=== PATIENT | male | born 1985 | race Caucasian/White ===

== ENCOUNTER 2017-06-08 19:25 | Emergency (ER) | payer SELFPAY | END 2017-06-08 20:20 | disposition home or self-care (01) | LOC: ERS 19:25 | DX: J34.0 Abscess, furuncle and carbuncle of nose (principal); Z87.891 Personal history of nicotine dependence | CPT/HCPCS: 99283 ==

== ENCOUNTER 2017-06-13 19:20 | Emergency (ER) | payer SELFPAY ==
--- NOTE | 2017-06-13 22:40 | RAD ---
TWO VIEW CHEST 06/13/17 INDICATION: Cough. Staph infection. FINDINGS: There is no lobar consolidation, effusion or pneumothorax. The cardiac silhouette is at upper limits of normal in size. Mild prominence of central pulmonary vasculature. IMPRESSION: 1. No lobar consolidation. 2. Mild prominence of cardiac silhouette and pulmonary vasculature. Correlate clinically. As nec essary, imaging followup may be obtained. POS: [facility]
== END 2017-06-13 23:10 | disposition home or self-care (01) ==
LOC: ERS 19:20
DX: J20.9 Acute bronchitis, unspecified (principal); F17.210 Nicotine dependence, cigarettes, uncomplicated
CPT/HCPCS: 71046; 87804

== ENCOUNTER 2017-06-18 09:08 | Emergency (ER) | payer SELFPAY ==
[2017-06-18] MEDS ORDERED: Dexamethasone 10 MG/ML VIAL ONE (11:18)
== END 2017-06-18 11:22 | disposition home or self-care (01) ==
LOC: ERS 09:08
DX: R21 Rash and other nonspecific skin eruption (principal); L50.0 Allergic urticaria; T36.1X5A Adverse effect of cephalosporins and other beta-lactam antibiotics, initial encounter; F17.210 Nicotine dependence, cigarettes, uncomplicated; Z79.899 Other long term (current) drug therapy
CPT/HCPCS: 99283; J1100

== ENCOUNTER 2017-06-20 02:29 | Emergency (ER) | payer SELFPAY ==
[2017-06-20] MEDS ORDERED: predniSONE 20 MG TAB ONE ×2 (02:45→02:46)
== END 2017-06-20 03:12 | disposition home or self-care (01) ==
LOC: ERS 02:29
DX: R22.0 Localized swelling, mass and lump, head (principal); F17.210 Nicotine dependence, cigarettes, uncomplicated
CPT/HCPCS: 99283; J7506

== ENCOUNTER 2017-07-07 22:33 | Emergency (ER) | payer SELFPAY ==
--- NOTE | 2017-07-07 23:50 | RAD ---
TWO VIEW CHEST: History: Cough. FINDINGS: Lungs are clear. Heart and mediastinum unremarkable. IMPRESSION: No acute abnormality. POS: [facility]
== END 2017-07-07 23:44 | disposition home or self-care (01) ==
LOC: ERS 22:33
DX: J20.9 Acute bronchitis, unspecified (principal); Z87.891 Personal history of nicotine dependence; Z79.899 Other long term (current) drug therapy
CPT/HCPCS: 71046; 87804

== ENCOUNTER 2017-08-12 16:09 | Emergency (ER) | payer SELFPAY | END 2017-08-12 18:12 | disposition home or self-care (01) | LOC: ERS 16:09 | DX: L01.00 Impetigo, unspecified (principal); Z87.891 Personal history of nicotine dependence | CPT/HCPCS: 99282 ==

== ENCOUNTER 2017-08-13 09:02 | Emergency (ER) | payer SELFPAY | END 2017-08-13 09:31 | disposition home or self-care (01) | LOC: ERS 09:02 | DX: L03.211 Cellulitis of face (principal); Z87.891 Personal history of nicotine dependence | CPT/HCPCS: 99283 ==

== ENCOUNTER 2017-09-24 11:54 | Emergency (ER) | payer SELFPAY ==
[2017-09-24] MEDS ORDERED: Ketorolac Tromethamine 30 MG/ML VIAL ONE (12:53)
[2017-09-24] MEDS ORDERED: Ibuprofen 200 MG TAB ONE (13:24)
--- NOTE | 2017-09-24 13:24 | RAD ---
RIGHT FOOT 3 VIEWS: Date: 09/24/17 HISTORY: 31-year-old male with history of right foot pain for several days. FINDINGS/IMPRESSION: No fracture, dislocation, or other significant acute osseous abnormality. POS: [facility]
== END 2017-09-24 14:19 | disposition home or self-care (01) ==
LOC: ERS 11:54
DX: S93.601A Unspecified sprain of right foot, initial encounter (principal); Z87.891 Personal history of nicotine dependence; X58.XXXA Exposure to other specified factors, initial encounter
CPT/HCPCS: J1885

== ENCOUNTER 2017-10-10 22:45 | Emergency (ER) | payer SELFPAY ==
--- NOTE | 2017-10-10 23:22 | RAD ---
THREE VIEWS OF THE RIGHT FOOT 10/10/17 COMPARISON: None. HISTORY: Right foot pain, injury. FINDINGS: There is dorsal soft tissue swelling involving the midfoot. There is an obliquely oriented nondisplac ed fracture involving the distal aspect of the second metatarsal shaft. No evidence for dislocation. IMPRESSION: Fracture of the second metatarsal. POS: [facility]
== END 2017-10-11 00:17 | disposition home or self-care (01) ==
LOC: ERS 22:45
DX: S92.324A Nondisplaced fracture of second metatarsal bone, right foot, initial encounter for closed fracture (principal); F17.220 Nicotine dependence, chewing tobacco, uncomplicated; X58.XXXA Exposure to other specified factors, initial encounter

== ENCOUNTER 2017-11-12 09:28 | Emergency (ER) | payer SELFPAY | END 2017-11-12 09:57 | disposition home or self-care (01) | LOC: ERS 09:28 | DX: L03.211 Cellulitis of face (principal); F17.220 Nicotine dependence, chewing tobacco, uncomplicated | CPT/HCPCS: 99283 ==

== ENCOUNTER 2018-02-10 05:56 | Emergency (ER) | payer SELFPAY ==
[2018-02-10] MEDS ORDERED: Magnesium Citrate 300 ML BOT ONE (06:29)
[2018-02-10] MEDS ORDERED: Clindamycin 150 MG CAP ONE (06:29)
== END 2018-02-10 06:33 | disposition home or self-care (01) ==
LOC: ERS 05:56
DX: L03.211 Cellulitis of face (principal); F17.220 Nicotine dependence, chewing tobacco, uncomplicated
CPT/HCPCS: 99283

== ENCOUNTER 2018-06-12 12:15 | Emergency (ER) | payer SELFPAY | END 2018-06-12 13:24 | disposition home or self-care (01) | LOC: ERS 12:15 | DX: M79.10 Myalgia, unspecified site (principal); R53.1 Weakness; R50.9 Fever, unspecified; Z87.891 Personal history of nicotine dependence | CPT/HCPCS: 87804; 99281 ==

== ENCOUNTER 2018-08-29 01:23 | Emergency (ER) | payer SELFPAY ==
[2018-08-29 01:57] LABS: #Basophils 0.1 thou/uL (0.0-0.2); #Eosinphils 0.3 thou/uL (0.0-0.7); #Lymphocytes 2.4 thou/uL (1.20-3.40); #Monocytes 0.5 thou/uL (0.11-0.59); #Neutrophils 3.9 thou/uL (1.40-6.50); %Basophils 0.8 % (0.0-1.0); %Eosinophils 3.7 % (0.0-10.0); %Lymphocytes 33.9 % (21.0-51.0); %Monocytes 7.4 % (0.0-10.0); %Neutrophils 54.3 % (42.0-75.0); Hemoglobin 14.1 g/dL (14.0-18.0); Mean Corpuscular HGB CONC 34.5 g/dL (32.0-36.0); Mean Corpuscular Hemoglobin 29.2 pg (27.0-31.0); Mean Corpuscular Volume 84.4 fL (78.0-98.0); Mean Platelet Volume 7.2 fL (7.4-10.4); Platelet Count 228 thou/uL (130-400); RBC Distribution Width 11.5 % (11.5-14.5); Red Blood Cell (RBC) Count 4.82 mill/uL (4.70-6.10); White Blood Cell (WBC) Count 7.1 thou/uL (4.8-10.8)
[2018-08-29 02:22] LABS: ALT (SGPT) 28 U/L (8-55); AST (SGOT) 19 U/L (5-34); Albumin 4.1 g/dL (3.5-5.0); Alkaline Phosphatase 82 U/L (40-150); Anion Gap 12 mmol/L (10-20); BUN (Urea Nitrogen) 18 mg/dL (8.9-20.6); Bilirubin, Total 0.3 mg/dL (0.2-1.2); Calc. Creatinine Clearance 0 mL/min (70-130); Calcium 9.2 mg/dL (7.8-10.44); Carbon Dioxide 25 mmol/L (22-29); Chloride 105 mmol/L (98-107); Estimated GFR-MDRD Greater than 90; Globulin 2.9 g/dL (2.4-3.5); Glucose 117 mg/dL (70-105); Lipase 30 U/L (8-78); Potassium 3.8 mmol/L (3.5-5.1); Sodium 138 mmol/L (136-145)
[2018-08-29] MEDS ORDERED: Ketorolac Tromethamine 60 MG/2 ML VIAL ONE (02:59)
== END 2018-08-29 03:22 | disposition home or self-care (01) ==
LOC: ERS 01:23
DX: R10.12 Left upper quadrant pain (principal); Z87.891 Personal history of nicotine dependence
CPT/HCPCS: 36415; 80053; 83690; 84484; 85025; 93005; 96372; J1885

== ENCOUNTER 2018-11-06 02:19 | Emergency (ER) | payer SELFPAY | END 2018-11-06 03:00 | disposition home or self-care (01) | LOC: ERS 02:19 | DX: L73.9 Follicular disorder, unspecified (principal); Z87.891 Personal history of nicotine dependence | CPT/HCPCS: 99283 ==

== ENCOUNTER 2018-12-10 00:12 | Emergency (ER) | payer SELFPAY | END 2018-12-10 00:56 | disposition home or self-care (01) | LOC: ERS 00:12 | DX: K13.0 Diseases of lips (principal); F17.220 Nicotine dependence, chewing tobacco, uncomplicated | CPT/HCPCS: 99283 ==

== ENCOUNTER 2019-03-10 10:25 | Emergency (ER) | payer BC, SELFPAY ==
[2019-03-10] MEDS ORDERED: Ondansetron ODT 4 MG TAB ONE (13:10)
[2019-03-10] MEDS ORDERED: Ketorolac Tromethamine 30 MG/ML VIAL ONE (13:10)
== END 2019-03-10 13:51 | disposition home or self-care (01) ==
LOC: ERS 10:25
DX: R11.2 Nausea with vomiting, unspecified (principal); R19.7 Diarrhea, unspecified; F17.220 Nicotine dependence, chewing tobacco, uncomplicated
CPT/HCPCS: 87804; J1885; Q0162

== ENCOUNTER 2019-07-15 20:24 | Emergency (ER) | payer SELFPAY ==
--- NOTE | 2019-07-15 20:55 | RAD ---
Right tibia-fibula: 4 views INDICATIONS: Injury with pain COMPARISON: None FINDINGS: Oblique mildly displaced fracture distal fibula diaphysis. Mildly displaced fracture medial malleolus. Proximal tibia fibula intact IMPRESSION: Fractures distal fibula and tibia
[2019-07-15] MEDS ORDERED: Adacel (T-DAP) 0.5 ML SYRINGE ONE (21:05)
[2019-07-15] MEDS ORDERED: Ibuprofen 800 MG TAB ONE (21:05)
[2019-07-15] MEDS ORDERED: HYDROcodone/Acetaminophen 5/325 mg Tablet ONE (21:15)
== END 2019-07-15 22:08 | disposition home or self-care (01) ==
LOC: ERS 20:24
DX: S89.301A Unspecified physeal fracture of lower end of right fibula, initial encounter for closed fracture (principal); S82.51XA Displaced fracture of medial malleolus of right tibia, initial encounter for closed fracture; F17.220 Nicotine dependence, chewing tobacco, uncomplicated; Z23 Encounter for immunization; V28.4XXA Motorcycle driver injured in noncollision transport accident in traffic accident, initial encounter; Y93.55 Activity, bike riding; Y92.481 Parking lot as the place of occurrence of the external cause
CPT/HCPCS: 29105; 90471; 90715

== ENCOUNTER 2019-07-22 10:01 | Day surgery (SDC) | payer BC ==
[2019-07-21 13:21] VITALS: BMI 32.5
[2019-07-22] MEDS ORDERED: Dexamethasone 20 MG/5 ML VIAL ONE (10:04)
[2019-07-22] MEDS ORDERED: Ondansetron PF 4 MG/2 ML Vial ONE (10:04)
[2019-07-22] MEDS ORDERED: Rocuronium Bromide 10 MG/ML (10ML VIAL) ONE (10:04)
[2019-07-22] MEDS ORDERED: Lidocaine 1% PF 5 ML VIAL ONE (10:04)
[2019-07-22] MEDS ORDERED: Glycopyrrolate 0.2 MG/ML 5 ML SYRINGE ONE (10:04)
[2019-07-22] MEDS ORDERED: PROPOFOL 200 MG/20 ML VIAL ONE (10:04)
[2019-07-22] MEDS ORDERED: Ropivacaine 0.5% HCl/PF (150 MG/30 ML VIAL) ONE (10:11)
[2019-07-22] MEDS ORDERED: Bupivacaine HCl 0.5%/Epinephrine 1:200,000/PF 30 ml Vial ONE (10:11)
[2019-07-22] MEDS ORDERED: Fentanyl 100 MCG/2 ML VIAL ONE ×2 (11:02→11:06)
[2019-07-22] MEDS ORDERED: Midazolam HCl 2 mg/2 ml Vial ONE (11:06)
[2019-07-22] MEDS ORDERED: Albuterol Sulfate HFA (OR ONLY) ONE (11:23)
[2019-07-22] MEDS ORDERED: Ondansetron PF 4 MG/2 ML Vial IVP PRN (12:07)
[2019-07-22] MEDS ORDERED: Zolpidem Tartrate 5 MG TAB PO PRN (12:07)
[2019-07-22] MEDS ORDERED: Promethazine HCl 25 MG/ML VIAL IM PRN (12:07)
[2019-07-22] MEDS ORDERED: Fentanyl 100 MCG/2 ML VIAL IV PRN (12:07)
[2019-07-22] MEDS ORDERED: Ropivacaine 0.2% 550 ML 550 ML NERVE BLCK SCH (12:07)
[2019-07-22] MEDS ORDERED: Acetaminophen 325 MG TAB PO PRN (12:07)
--- NOTE | 2019-07-22 14:11 | RAD ---
Exam:Exam: Anterior operative fluoroscopy for internal fixation. HISTORY: Right tibia fibular fracture COMPARISON: None EXPOSURE: 11.6 seconds, 0.33 mCi FINDINGS: 3 fluoroscopic images demonstrate internal fixation along the distal tibia and fibula. Near anatomic alignment. IMPRESSION: Intraoperative fluoroscopy for Doctor Velez as above.
[2019-07-22] MEDS ORDERED: HYDROcodone/Acetaminophen 5/325 mg Tablet ONE (14:49)
--- NOTE | 2019-07-22 17:55 | OP ---
DATE OF PROCEDURE: 07/22/2019 PREOPERATIVE DIAGNOSIS: Right bimalleolar ankle fracture. POSTOPERATIVE DIAGNOSIS: Right bimalleolar ankle fracture. PROCEDURE PERFORMED: Open reduction and internal fixation of right bimalleolar ankle fracture. ANESTHESIA: General. INFORMATION SERVICES VICE PRESIDENT: Tre. TOURNIQUET TIME: Approximately 45 minutes at 300 mmHg. IMPLANTS: An 8-hole one-third tubular plate as well as a small fragment hook plate. COMPLICATIONS: None. DRAINS: None. SPECIMEN: None. OUTCOME: Satisfactory. INDICATIONS FOR PROCEDURE: Antonio is a 33-year-old gentleman, status post right ankle fracture. He was seen in the office and asked to keep the ankle elevated. He has done so and the swelling now is down to a level, where open reduction and internal fixation is feasible. Informed consent has been obtained. I believe all questions were answered. DESCRIPTION OF PROCEDURE: The patient was brought to the operating room and a time-out performed followed by induction of general anesthesia. Next, the limb was exsanguinated with Esmarch bandage after the limb was sterilely prepped and draped. A vertical incision was made overlying the lateral malleolus after skin was sharply incised. Dissection was carried down bluntly, identifying the nerve and reflecting it anteriorly. Next, the fracture hematoma was lavaged from the wound and then the fracture reduced and held in place with a bone tenaculum. Next, an anterior to posterior interfragmentary compression screw was applied. This was followed by application of an 8-hole one-third tubular neutralization plate to the lateral cortex of the distal fibula and held in place with a combination of cortical and cancellous screws. With completion of this, attention was then placed on the medial side of the ankle. A curvilinear incision was made, centered over the medial malleolus after skin was sharply incised. Dissection was carried down bluntly, taking care to protect the saphenous vein. The periosteum was incised in line with skin incision and then reflected anteriorly and posteriorly revealing the underlying fracture. There were basically three components to this fracture, one being a transverse fracture low on the medial malleolus and then two vertical fracture lines extending more proximally. As such, it was opted to proceed with placement of a hook plate to capture both the distal-most fragment as well as stabilize this vertical shear component. Once the plate was contoured, it was applied to the medial malleolus and then held in place initially with a partially-threaded cancellous screw through the distal most hole of the plate, getting good compression of the distal fragment and then two additional screws were placed more proximally to function as an antiglide plate. At the completion of this, AP, lateral, and mortise x-rays showed anatomic alignment of the fracture. The wounds were then irrigated with bulb syringe and then wound closure was performed with 0 Vicryl deep followed by 2-0 Vicryl and a combination of hilary and suture for the skin. Xeroform gauze, Webril, and fiberglass splint were applied to the ankle. The tourniquet was let down and the patient was transferred to recovery room in stable condition. There were no complications. He tolerated the procedure well. Job ID: [id number]
== END 2019-07-22 15:55 | disposition home or self-care (01) ==
LOC: SDC 10:01
PROVIDERS: ATTEND Orthopaedic Surgery
PROC: 0QSG04Z Reposition Right Tibia with Internal Fixation Device, Open Approach (ICD-10-PCS; principal; 2019-07-22)
DX: S82.841A Displaced bimalleolar fracture of right lower leg, initial encounter for closed fracture (principal); F17.200 Nicotine dependence, unspecified, uncomplicated; V87.8XXA Person injured in other specified noncollision transport accidents involving motor vehicle (traffic), initial encounter; Z88.2 Allergy status to sulfonamides
CPT/HCPCS: 76000; A4306; C1713; J0670; J0690; J1100; J2001; J2250; J2405; J2704; J2795; J3010

== ENCOUNTER 2019-07-23 18:35 | Emergency (ER) | payer BC ==
[2019-07-23] MEDS ORDERED: Ketorolac Tromethamine 30 MG/ML VIAL ONE (19:16)
[2019-07-23] MEDS ORDERED: Ondansetron PF 4 MG/2 ML Vial ONE (19:16)
[2019-07-23] MEDS ORDERED: Morphine 4 MG/ML VIAL ONE (19:16)
--- NOTE | 2019-07-23 19:18 | RAD ---
XR Tib Fib Rt Leg 2 View History: Pain Comparison: Radiograph July 15, 2019 Findings: Proximal tibia and fibula are intact. Satisfactory appearance of the plate-screw fixation. Impression: Satisfactory appearance of the recent plate-screw fixation. No hardware complication.
--- NOTE | 2019-07-23 19:51 | ULT ---
US Venous Doppler Rt Unilat History: Pain Comparison: None. Findings: Real-time grayscale, color, and spectral analysis of the right lower extremity venous syste m was performed. The common femoral, femoral, proximal portions greater saphenous and deep femoral veins were interrogated. Popliteal vein was also interrogated. Posterior tibial veins were interrogat ed due to bandage. Normal flow, augmentation, and compression. Impression: No deep venous thrombosis.
== END 2019-07-23 21:28 | disposition home or self-care (01) ==
LOC: ERS 18:35
DX: G89.18 Other acute postprocedural pain (principal); M79.651 Pain in right thigh; F17.220 Nicotine dependence, chewing tobacco, uncomplicated; Z79.899 Other long term (current) drug therapy
CPT/HCPCS: 96374; 96375; J1885; J2270; J2405

== ENCOUNTER 2020-07-26 11:39 | Emergency (ER) | payer BC, SELFPAY | END 2020-07-26 13:10 | disposition home or self-care (01) | LOC: ERS 11:39 | DX: K13.0 Diseases of lips (principal); W45.8XXA Other foreign body or object entering through skin, initial encounter | CPT/HCPCS: 99283 ==

== ENCOUNTER 2020-12-19 00:17 | Emergency (ER) | payer BC, SELFPAY ==
[2020-12-19 00:41] LABS: #Eosinphils 0.2 thou/uL (0.0-0.7); #Lymphocytes 1.8 thou/uL (1.20-3.40); #Monocytes 0.8 thou/uL (0.11-0.59); #Neutrophils 9.3 thou/uL (1.40-6.50); %Basophils 0.3 % (0.0-1.0); %Eosinophils 1.8 % (0.0-10.0); %Lymphocytes 14.9 % (21.0-51.0); %Monocytes 6.4 % (0.0-10.0); %Neutrophils 76.6 % (42.0-75.0); Hemoglobin 14.9 g/dL (14.0-18.0); Mean Corpuscular HGB CONC 34.3 g/dL (32.0-36.0); Mean Corpuscular Hemoglobin 29.4 pg (27.0-31.0); Mean Corpuscular Volume 85.9 fL (78.0-98.0); Mean Platelet Volume 7.7 fL (7.4-10.4); Platelet Count 239 thou/uL (130-400); RBC Distribution Width 11.5 % (11.5-14.5); Red Blood Cell (RBC) Count 5.07 mill/uL (4.70-6.10); White Blood Cell (WBC) Count 12.2 thou/uL (4.8-10.8)
[2020-12-19 01:03] LABS: ALT (SGPT) 24 U/L (8-55); AST (SGOT) 15 U/L (5-34); Alkaline Phosphatase 94 U/L (40-110); Anion Gap 10 mmol/L (10-20); BUN (Urea Nitrogen) 14 mg/dL (8.9-20.6); Bilirubin, Total 0.3 mg/dL (0.2-1.2); Calc. Creatinine Clearance 0 mL/min (70-130); Calcium 9.2 mg/dL (7.8-10.44); Carbon Dioxide 28 mmol/L (22-29); Chloride 104 mmol/L (98-107); Globulin 3.2 g/dL (2.4-3.5); Glucose 155 mg/dL (70-105); Potassium 4.2 mmol/L (3.5-5.1); Protein, Total 7.2 g/dL (6.0-8.3); Sodium 138 mmol/L (136-145)
[2020-12-19] MEDS ORDERED: Clindamycin/D5W 900 mg/50 ml Premix Bag ONE (05:13)
[2020-12-19] MEDS ORDERED: Ketorolac Tromethamine 30 MG/ML VIAL ONE (05:45)
[2020-12-19] MEDS ORDERED: Iopamidol-370 76% 500 ML 1 ML ONE (13:19)
== END 2020-12-19 07:30 | disposition home or self-care (01) ==
LOC: ERS 00:17
DX: L03.221 Cellulitis of neck (principal); F17.220 Nicotine dependence, chewing tobacco, uncomplicated
CPT/HCPCS: 36415; 70491; 80053; 85025; 96374; 96375; J1885; J3490; Q9967